=== PATIENT | female | born 1935 | race Caucasian/White ===

== ENCOUNTER 2020-05-13 20:22 | Inpatient (IN) | payer MEDICARE, OTHER ==
[2020-05-13 21:21] LABS: BASOPHIL 0.4 % (0-2); EOSINOPHIL 0.2 % (0-7); HCT 37.9 % (37.0-47.0); HGB 12.6 g/dl (12.5-16.0); LYMPHOCYTE 12.3 % (15-48); MCH 29.5 pg (25.0-31.0); MCHC 33.2 g/dL (32.0-36.0); MCV 88.8 fL (78.0-100.0); MONOCYTE 6.9 % (0-12); MPV 10.1 fL (6.0-9.5); NRBC 0; PLT 276 K/uL (150-400); RBC 4.27 M/uL (4.20-5.40)
[2020-05-13 21:25] LABS: INR 1.72 (0.9-1.2); PROTHROMBIN TIME 19.2 SECONDS (11.4-13.6); PTT 23.5 SECONDS (22.2-34.7)
[2020-05-13 21:47] LABS: BILIRUBIN - TOTAL 0.3 mg/dL (0.2-1.0); BUN/CREAT RATIO (CALC) 41.7 RATIO; C-REACTIVE PROTEIN 3.1 mg/dL (<=0.90); CREATININE 0.6 mg/dL (0.51-0.95); MAGNESIUM 1.8 mg/dL (1.8-2.4); POTASSIUM 4.1 mmol/L (3.5-5.1)
[2020-05-13 22:02] LABS: BILIRUBIN NEGATIVE (NEGATIVE); BLOOD 3+ Ery/uL (NEGATIVE); CLARITY HAZY (CLEAR); COLOR YELLOW (YELLOW); GLUCOSE (U) 1+ mg/dL (NORMAL); LEUKOCYTES 1+ Leu/uL (NEGATIVE); NITRITE NEGATIVE (NEGATIVE); PROTEIN 1+ mg/dL (NEGATIVE); SPECIFIC GRAVITY >=1.030 (1.001-1.030); UROBILINOGEN 0.2 mg/dL (0.2-1.0)
[2020-05-13 22:05] LABS: BACTERIA 1+; SQUAMOUS EPITHELIAL CELLS 20-50; YEAST PRESENT
--- NOTE | 2020-05-14 06:07 | NUR ---
PATIENT CAME TO THE FLOOR A&O TO ALL IDENTIFYING QUESTIONS. GRADUALLY THROUGHOUT THE NIGHT THE PATIENT BECAME MORE CONFUSED AND BEGAN HALLUCINATING AND BECAME COMBATIVE BOTH VERBALLY AND PHYICALLY. GONZALO DE DIOS WAS NOTIFIED AND SAW THE PATIENT WELL. PATIENT STATED AT THAT TIME THAT SHE JUST WANTED TO GET OUT OF HERE AND A TELEPHONE CALL TO HER FRIEND WAS MADE IN WHICH SHE TOLD HIM TO COME AND GET HER. PATIENT STATED THAT SHE WASN'T GOING TO TAKE ANY MEDS AND WHEN GONZALO DE DIOS LEFT THE ROOM SHE TOOK HER MONTESSORI PRESCHOOL TEACHER OFF AND BEGAN ATTEMPTING TO GET UP OUT OF BED AND YELLING THAT SHE WAS GOING TO LEAVE. GEODON 5MG IM WAS ORDERED AND GIVEN. PATIENT STATED BEFORE ADMINISTRATION THAT SHE WAS GOING TO GO HOME AND TAKE A BUNCH OF PILLS TO KILL HERSELF TO ABHIJIT CASAREZ. MYSELF, EZIO RN, MIKE RN, AND HERMELINDO RN WERE ABLE TO GIVE IM INJECTION AT WHICH TIME THE PATIENT PUSHED ME AWAY FROM HER. SHE IS NOW SAYING THAT WE JUST WANT TO PUT HER IN A GROUP HOME. SHE IS STILL CONFUSED AND VERBALY COMBATIVE.
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
--- NOTE | 2020-05-14 12:38 | NUR ---
SPOKE WITH PT. DAUGHTER, SARAI [phone]. SARAI RESIDES IN [facility]. PT. HAS A DEMETRIA NGUYEN WHO RESIDES IN [place]. [phone]. SHE HELPS PT AT TIMES TRANSPORTING TO DR. PATHAK. PT. DAUGHTER HAS RECENTLY HAD SURGERY AND IS UNABLE TO TRAVEL. SHE IS CONCERNED REGARDING HER MOTHER RETURNING TO HER HOME NAD WOULD LIKE FOR HER TO GO REHAB. PT. IS REFUSING REHAB AT THIS TIME.
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
[2020-05-14] MEDS ORDERED: ALLOPURINOL 30300 MG PO (14:26)
[2020-05-14] MEDS ORDERED: BACLOFEN 10MG T10 MG PO (14:27)
[2020-05-14] MEDS ORDERED: NEURONTIN100 MG PO (14:28)
[2020-05-14] MEDS ORDERED: LEXAPRO 10MG TA10 MG PO (14:28)
[2020-05-14] MEDS ORDERED: LISINOPRIL-HCT1 EAC1 PO (14:29)
[2020-05-14] MEDS ORDERED: PRILOSEC20 MG PO (14:30)
[2020-05-14] MEDS ORDERED: GLUCOPHAGE500 MG PO (14:30)
[2020-05-14] MEDS ORDERED: K-DUR20 MEQ PO (14:31)
[2020-05-14] MEDS ORDERED: SENNA8.6 MG PO (14:31)
[2020-05-14] MEDS ORDERED: TAMOXIFEN CITRA20 MG PO (14:32)
[2020-05-14] MEDS ORDERED: XARELTO10 MG PO (14:33)
--- NOTE | 2020-05-14 15:40 | NUR ---
SPOKE WITH PT REGARDING GOING [facility]. PT. STATED THAT SHE WOULD THINK ABOUT IT.
[2020-05-14 18:33] LABS: RETICULOCYTE COUNT 1.9 % (1.0-2.0)
[2020-05-14 18:54] LABS: IRON % SATURATION 10.7 %SAT (20-50)
[2020-05-14 19:12] LABS: FOLIC ACID (SERUM) 14.7 ng/mL (8.6-58.9)
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
[2020-05-15 06:58] LABS: BASOPHIL 0.4 % (0-2); EOSINOPHIL 1.4 % (0-7); HCT 33.3 % (37.0-47.0); HGB 10.7 g/dl (12.5-16.0); LYMPHOCYTE 23.8 % (15-48); MCH 28.8 pg (25.0-31.0); MCHC 32.1 g/dL (32.0-36.0); MCV 89.8 fL (78.0-100.0); MONOCYTE 9.8 % (0-12); MPV 9.8 fL (6.0-9.5); NEUTROPHIL 63.7 % (41-80); NRBC 0; PLT 238 K/uL (150-400); RBC 3.71 M/uL (4.20-5.40); RDW 13.1 % (11.5-14.0); WBC 7.8 K/uL (4.0-10.5)
[2020-05-15 07:03] LABS: INR 2.61 (0.9-1.2); PROTHROMBIN TIME 26.6 SECONDS (11.4-13.6)
[2020-05-15 07:49] LABS: ALBUMIN 2.7 g/dL (3.4-5.0); BILIRUBIN - TOTAL 0.4 mg/dL (0.2-1.0); BUN/CREAT RATIO (CALC) 19.5 RATIO; CREATININE 0.77 mg/dL (0.51-0.95); GLOBULIN (CALCULATION) 3.1 g/dL; MAGNESIUM 1.7 mg/dL (1.8-2.4); POTASSIUM 3.5 mmol/L (3.5-5.1); TOTAL PROTEIN 5.8 g/dL (6.4-8.2)
--- NOTE | 2020-05-15 14:51 | NUR ---
DR. HILL WOULD LIKE A [facility] PSY REFERRAL FOR PT. SENT REFERRALS TO [facility]THEY HAVE DECLINED PT. [facility] DOES NOT HAVE ANY BEDS [facility] CLOSED [facility] SPOKE WITH INTAKE. THE DOCTOR IS IN AN INTAKE. HE WILL CALL DR. HILL BACK FOR INFORMATION.
--- NOTE | 2020-05-15 15:17 | NUR ---
AT 0840 STUDENT NURSE WENT IN TO GIVE THE PT HER MORNING MEDICATIONS AND COULD NOT AROUSE HER. SHE WOULD NOT RESPOND TO VERBAL OR TACTILE STIMULI. I ASKED SATNAM LACEY TO COME AND ASSESS TO THE SAME RESULT. STUDENT NURSE THEN ASKED DR HILL TO COME LOOK AND SHE STILL WOULD NOT RESPOND TO VERBAL OR TACTILE STIMULI. DR HILL PUT IN AN ORDER FOR AN ABG AND A HEAD CT WITHOUT CONTRAST.
[2020-05-15 16:05] LABS: BASOPHIL 0.4 % (0-2); EOSINOPHIL 0.4 % (0-7); HCT 36.5 % (37.0-47.0); HGB 12.1 g/dl (12.5-16.0); LYMPHOCYTE 20.3 % (15-48); MCH 29.4 pg (25.0-31.0); MCHC 33.2 g/dL (32.0-36.0); MCV 88.6 fL (78.0-100.0); MONOCYTE 6.7 % (0-12); MPV 9.9 fL (6.0-9.5); NEUTROPHIL 71.5 % (41-80); NRBC 0; PLT 298 K/uL (150-400); RBC 4.12 M/uL (4.20-5.40); RDW 13.3 % (11.5-14.0); WBC 10.4 K/uL (4.0-10.5)
[2020-05-15 16:19] LABS: PRO-BNP 1103 pg/mL (<450)
[2020-05-15 16:33] LABS: ALBUMIN 3.2 g/dL (3.4-5.0); BILIRUBIN - TOTAL 0.4 mg/dL (0.2-1.0); BUN/CREAT RATIO (CALC) 18.3 RATIO; CREATININE 0.71 mg/dL (0.51-0.95); GLOBULIN (CALCULATION) 3.5 g/dL; MAGNESIUM 1.8 mg/dL (1.8-2.4); PHOSPHORUS 2.7 mg/dL (2.6-4.7); POTASSIUM 3.6 mmol/L (3.5-5.1); TOTAL PROTEIN 6.7 g/dL (6.4-8.2)
--- NOTE | 2020-05-15 17:07 | NUR ---
[facility] PT NOT MEDICALLY STABLE. KESHAV DIAZ - RECEIVED CALL FROM [facility]. DOES NOT FEEL PT. MEDICALLY STABLE. [facility] - DOES NOT ACCEPT [facility] - DOES NOT ACCEPT [facility] - DOES NOT ACCEPT [facility] - NO [facility] - WILL NOT CONSIDER [facility] - NO JANE
--- NOTE | 2020-05-15 17:29 | NUR ---
luciano [phone] [facility] [phone]
--- NOTE | 2020-05-15 17:32 | NUR ---
RADHA FROM [facility] CALLED AND LEFT MESSAGE THAT PATIENT DOES NOT MEET INPATIENT ADMISSION REQUIREMENTS. THE DOCTOR AT THE FACILITY BELIEVES PATIENT IS APPROPRIATE FOR OUTPATIENT THERAPY.
--- NOTE | 2020-05-15 17:32 | NUR ---
CALL RECEIVED FROM RADHA ACOSTA AT [facility]. MS ACOSTA ASKED QUESTIONS ABOUT PATIENT. THIS RN ADVISED OF PATIENT CONFUSION AND RELAYED PATIENT COMMENTS ABOUT "BEING AT THE [place] AND SEEING THE BRIGHT [place]", PATIENT'S REFUSAL TO EAT BREAKFAST STATING SHE WAS "GOING TO HAVE A BANQUET WHEN SHE GOT THERE". ALSO RELAYED PATIENT VERBALIZATION THE PAST TWO EVENINGS THAT WHEN SHE GETS HOME SHE WILL "JUST TAKE A BOTTLE OF PILLS AND KILL HERSELF". RADHA ASKED TO SPEAK WITH PATIENT. RN TOOK ASCOM PHONE TO PATIENT ROOM AND GAVE PHONE TO PATIENT. RADHA SPOKE WITH PATIENT APPROXIMATELY TWO MINUTES AND PATIENT HANDED PHONE BACK TO RN. RADHA STATES PATIENT IS "TOTALLY WITH IT AND KNOWS WHAT IS GOING ON". RADHA STATED PATIENT REFUSED TO GIVE CONSENT TO BE ADMITTED TO THEIR FACILITY. RADHA WILL SPEAK TO THE DOCTOR AND CALL US BACK.
[2020-05-15 21:26] LABS: BUN/CREAT RATIO (CALC) 15.1 RATIO; CREATININE 0.86 mg/dL (0.51-0.95); POTASSIUM 3.4 mmol/L (3.5-5.1)
[2020-05-16 06:05] LABS: BASOPHIL 0.5 % (0-2); EOSINOPHIL 1.2 % (0-7); HCT 36.2 % (37.0-47.0); HGB 11.8 g/dl (12.5-16.0); LYMPHOCYTE 17.3 % (15-48); MCH 29.4 pg (25.0-31.0); MCHC 32.6 g/dL (32.0-36.0); MCV 90.3 fL (78.0-100.0); MONOCYTE 8.5 % (0-12); NRBC 0; PLT 264 K/uL (150-400); RBC 4.01 M/uL (4.20-5.40); RDW 13.2 % (11.5-14.0); WBC 9.7 K/uL (4.0-10.5)
[2020-05-16 06:28] LABS: PRO-BNP 3105 pg/mL (<450)
[2020-05-16 06:32] LABS: ALBUMIN 2.9 g/dL (3.4-5.0); BILIRUBIN - TOTAL 0.5 mg/dL (0.2-1.0); BUN/CREAT RATIO (CALC) 13.9 RATIO; CREATININE 0.72 mg/dL (0.51-0.95); GLOBULIN (CALCULATION) 3.6 g/dL; MAGNESIUM 1.5 mg/dL (1.8-2.4); POTASSIUM 3.4 mmol/L (3.5-5.1); TOTAL PROTEIN 6.5 g/dL (6.4-8.2)
[2020-05-17 04:21] LABS: BASOPHIL 0.5 % (0-2); EOSINOPHIL 1.5 % (0-7); HCT 31.6 % (37.0-47.0); HGB 10.2 g/dl (12.5-16.0); LYMPHOCYTE 25.5 % (15-48); MCHC 32.3 g/dL (32.0-36.0); MCV 89.8 fL (78.0-100.0); MONOCYTE 11.8 % (0-12); MPV 9.7 fL (6.0-9.5); NEUTROPHIL 60.1 % (41-80); NRBC 0; PLT 259 K/uL (150-400); RBC 3.52 M/uL (4.20-5.40); RDW 13.4 % (11.5-14.0); WBC 8.6 K/uL (4.0-10.5)
[2020-05-17 04:40] LABS: BUN/CREAT RATIO (CALC) 15.7 RATIO; CREATININE 0.89 mg/dL (0.51-0.95); PHOSPHORUS 3.7 mg/dL (2.6-4.7); POTASSIUM 3.2 mmol/L (3.5-5.1)
--- NOTE | 2020-05-17 18:06 | NUR ---
1730 TOOK PT HER MEDICATION IN ROOM. PT NOT RESPONDING TO NURSE. V/S TAKEN B/P 147/65, P 83, R18, T 97.7 AX. R/A SATS 98%. PT UNABLE TO TAKE MEDICATION AT THIS TIME. PT AT THIS TIME HAS NO GAG REFLEX, ONLY WORDS PT STATED IM . PT SPEAKING ANY OTHER WORKDS. NO HAND DIRECTOR OF SPORTS PERFORMANCE OR LEG MOVMENT.DR. HILL WAS CALLED INTO THE ROOM AND EXAM PT. STATED PT IS IN CATATONCIC STATE, MD RAISED PT ARMS AGAIN AND HELD FOR FEW SECONDS AND PT LEFT ARMS RAISE AT THAT TIME. WRITING ORDERS FOR ATIVAN 0.5MG IV. WILL CONTINUE TO MONITOR PT.
[2020-05-18 06:17] LABS: BASOPHIL 0.5 % (0-2); EOSINOPHIL 2.1 % (0-7); HCT 32.1 % (37.0-47.0); HGB 10.3 g/dl (12.5-16.0); LYMPHOCYTE 33.6 % (15-48); MCH 29.5 pg (25.0-31.0); MCHC 32.1 g/dL (32.0-36.0); MONOCYTE 9.8 % (0-12); NEUTROPHIL 53.2 % (41-80); NRBC 0; PLT 275 K/uL (150-400); RBC 3.49 M/uL (4.20-5.40); RDW 13.5 % (11.5-14.0); WBC 6.5 K/uL (4.0-10.5)
[2020-05-18 06:40] LABS: ALBUMIN 2.5 g/dL (3.4-5.0); BILIRUBIN - TOTAL 0.4 mg/dL (0.2-1.0); CREATININE 0.94 mg/dL (0.51-0.95); GLOBULIN (CALCULATION) 3.1 g/dL; PHOSPHORUS 4.4 mg/dL (2.6-4.7); POTASSIUM 3.4 mmol/L (3.5-5.1); TOTAL PROTEIN 5.6 g/dL (6.4-8.2)
[2020-05-18] MEDS ORDERED: NEURONTIN100 MG PO (15:05)
[2020-05-18] MEDS ORDERED: LOPRESSOR25 MG PO (15:05)
--- NOTE | 2020-05-18 15:10 | NUR ---
PT. IS WILLING TO GO TO [facility]. HER DAUGHRER, SARAI, IS HERE AND WILLING TO TRANSPORT. ADVISED ABHIJIT HAY AND DR. RODRIGUEZ OF [facility] ACEPETANCE OF PT.
== END 2020-05-18 19:05 | DRG 871 ==
LOC: FER 20:22 → FMS 23:35
PROVIDERS: Emergency Medicine; Nurse Practitioner; ADMIT Internal Medicine
DX: A41.9 Sepsis, unspecified organism (principal); G93.41 Metabolic encephalopathy; S32.2XXA Fracture of coccyx, initial encounter for closed fracture; S32.10XA Unspecified fracture of sacrum, initial encounter for closed fracture; R45.851 Suicidal ideations; N39.0 Urinary tract infection, site not specified; Z20.822 Contact with and (suspected) exposure to COVID-19; R65.20 Severe sepsis without septic shock; E11.9 Type 2 diabetes mellitus without complications; I10 Essential (primary) hypertension; E78.5 Hyperlipidemia, unspecified; K21.9 Gastro-esophageal reflux disease without esophagitis; F06.1 Catatonic disorder due to known physiological condition; M10.9 Gout, unspecified; R19.7 Diarrhea, unspecified; L89.312 Pressure ulcer of right buttock, stage 2; Z96.653 Presence of artificial knee joint, bilateral; Z96.612 Presence of left artificial shoulder joint; W19.XXXA Unspecified fall, initial encounter; Z90.49 Acquired absence of other specified parts of digestive tract; Z90.710 Acquired absence of both cervix and uterus; Z98.890 Other specified postprocedural states; Z88.5 Allergy status to narcotic agent; Z86.718 Personal history of other venous thrombosis and embolism; Z87.440 Personal history of urinary (tract) infections; Z87.01 Personal history of pneumonia (recurrent); Z85.828 Personal history of other malignant neoplasm of skin
CPT/HCPCS: 36415; 36600; 70450; 71045; 71250; 72131; 80048; 80053; 81001; 82140; 82607; 82728; 82746; 82803; 83540; 83550; 83605; 83615; 83735; 83880; 84100; 84145; 84443; 84484; 85025; 85610; 85730; 86140; 87040; 87045; 87046; 87088; 87205; 87449; 93005; 94010; 97116; 97162; 97166; 97530-GP; 97535; J2060; J2405; J2543; J2916; J3475; J3486; J7030; J7120; Q9967; U0002